=== PATIENT | male | born 1955 | race Caucasian/White ===

== ENCOUNTER 2020-06-19 00:44 | Outpatient (CLI) | payer OTHER, SELFPAY ==
[2020-06-19 19:29] LABS: SARS-CoV-2 RNA PCR Negative
== END 2020-06-19 00:45 | disposition home or self-care (01) ==
LOC: ANHCOVIDDT 00:44
PROVIDERS: PCP Family Medicine; Visit Provider Internal Medicine Gastroenterology
DX: Z01.812 Encounter for preprocedural laboratory examination (principal); Z20.828 Contact with and (suspected) exposure to other viral communicable diseases
CPT/HCPCS: 87635; C9803; U0003

== ENCOUNTER 2020-06-22 00:43 | Day surgery (SDC) | payer OTHER, SELFPAY ==
[2020-06-10 13:58] VITALS: BMI 28.3
[2020-06-22 06:16] VITALS: BP 105/68; PULSE 63; RESP 18; TEMP 36.2; O2SAT 96
[2020-06-22] MEDS: LACTATED RINGERS 1,000 ML 150 ML IV CONT (06:25)
--- NOTE | 2020-06-22 07:12 | WPDANESEPPF ---
Anes - Initial Pre Proc Eval Procedure: Operation Date: 06/22/20 07:30 Proposed Procedures p Esophagogastroduodenoscopy - Hilario Smith MD Date/Time: 06/22/20 07:12 Surgeon: Hilario Smith MD Pre Op Diagnosis: acid reflux Patient Data Age: 64 Gender: M Height: 5 ft 9 in Weight: 89.9 kg Last Vital Signs Temp 97.2 F L 06/22/20 06:16 Pulse 63 06/22/20 06:16 Resp 18 06/22/20 06:16 BP 105/68 06/22/20 06:16 Pulse Ox 96 06/22/20 06:16 Allergies Allergy/AdvReac Type Severity Reaction Status Date / Time No Known Allergies Allergy Verified 06/22/20 06:15 Home Medications Medication Instructions Recorded Confirmed Type ibuprofen 600 mg tablet 500 mg PO TID PRN tablet 05/27/20 06/10/20 History omeprazole 20 mg capsule,delayed 20 mg PO DAILY PRN 05/27/20 06/10/20 History release Patient hx anesthesia problems: none Family hx anesthesia problems: none [facility] Past Medical History Medical History (Updated 05/27/20 @ 09:52 by Hilario Smith MD) Adenomatous colon polyp Arthritis Esophageal ring GERD (gastroesophageal reflux disease) Sore throat Anes - Eval Final PreProcedure Day of Procedure 06/22/20 07:12 Patient weight: overweight Heart: regular rate and rhythm Lungs: clear to auscultation Airway: Mallampati scale class II Neurological: alert and oriented Last oral intake: >/= 8 hours ASA classification: II Emergent: no Anesthetic plan: proceed Anesthesia type and monitoring: general GIVS and standard monitoring Informed Consent: The patient's anesthetic plan and its attendant risks and benefits were discussed with the patient/family/POA. Questions were solicited and answers provided to the satisfaction of the patient/family/POA.
[2020-06-22 07:43] VITALS: BP 111/78; PULSE 62; RESP 15; O2SAT 94
--- NOTE | 2020-06-22 07:49 | WPDHPUPDATE1 ---
History and Physical Update Update Date/Time: 06/22/20 07:49 History and Physical has been reviewed, including an updated exam of the patient. There are NO changes in the patient's condition. Risks, benefits, and alternatives have been discussed and questions answered. Patient agrees to proceed with procedure.
[2020-06-22 07:53] VITALS: BP 100/67; PULSE 57; RESP 16; O2SAT 94
[2020-06-22 08:03] VITALS: BP 120/74; PULSE 56; RESP 16; O2SAT 94
== END 2020-06-22 08:16 | disposition home or self-care (01) ==
PROVIDERS: PCP Family Medicine; Visit Provider Internal Medicine Gastroenterology
PROC: 0DJ08ZZ Inspection of Upper Intestinal Tract, Via Natural or Artificial Opening Endoscopic (ICD-10-PCS; CPT 43235; principal; 2020-06-22 07:30)
DX: K21.0 Gastro-esophageal reflux disease with esophagitis (principal); Z87.891 Personal history of nicotine dependence; M96.0 Pseudarthrosis after fusion or arthrodesis; Z86.010 Personal history of colon polyps; K22.2 Esophageal obstruction
CPT/HCPCS: 43239; 88305; J2704; J7120